=== PATIENT | female | born 1960 | race Caucasian/White ===

== ENCOUNTER 2016-12-24 07:39 | Day surgery (SDC) | payer BC ==
[~2016-12-24] VITALS: Ht 170.2 cm; Wt 70.2 kg
[~2016-12-24 07:39] MED LIST: CHANTIX1 MG PO; CHLORDIAZEPOXID25 MG PO; CIPROFLOXACIN500 M1 PO; FOLIC ACID1 MG PO; LISINOPRIL10 MG PO; PRAVACHOL20 MG PO; TRAZODONE HCL50 MG PO; ULTRAM50 MG PO; VITAMIN B-1100 MG PO
== END 2016-12-24 09:07 | disposition home or self-care (01) ==
LOC: PAIN 07:39 → SDC 08:15 → PAIN 09:07
DX: M47.812 Spondylosis without myelopathy or radiculopathy, cervical region (principal); M79.602 Pain in left arm; Z87.891 Personal history of nicotine dependence; V80.010S Animal-rider injured by fall from or being thrown from horse in noncollision accident, sequela; E78.5 Hyperlipidemia, unspecified
CPT/HCPCS: J1030; J2250; J3010; S0020

== ENCOUNTER 2017-04-29 10:03 | Day surgery (SDC) | payer BC ==
[~2017-04-29] VITALS: Ht 170.2 cm; Wt 70.2 kg
== END 2017-04-29 12:00 | disposition home or self-care (01) ==
LOC: PAIN 10:03 → SDC 10:30 → PAIN 10:30
DX: M54.2 Cervicalgia (principal); G89.29 Other chronic pain; M12.88 Other specific arthropathies, not elsewhere classified, other specified site; I10 Essential (primary) hypertension; M79.602 Pain in left arm; M79.1 Myalgia; E78.00 Pure hypercholesterolemia, unspecified; V80.010S Animal-rider injured by fall from or being thrown from horse in noncollision accident, sequela; Z87.891 Personal history of nicotine dependence; Z79.891 Long term (current) use of opiate analgesic
CPT/HCPCS: J1030; J1885; J2250; J3010; S0020